=== PATIENT | male | born 1985 | race African-American/Black ===

== ENCOUNTER → 2020-11-27 09:45 | Outpatient (CLI) | payer OTHER, SELFPAY ==
[2020-11-27] MEDS: COVID-19 VACC, Ad26(JANSSEN)/PF 0.5 ML IM (09:53)
== END ==
PROVIDERS: Visit Provider Internal Medicine
DX: Z23 Encounter for immunization (principal)
CPT/HCPCS: 0031A; 91303

== ENCOUNTER → 2021-08-24 10:35 | Outpatient (CLI) | payer OTHER, SELFPAY ==
[2021-08-24 10:51] LABS: COVID19 -Nasal RAPID POSITIVE (Negative)
== END ==
PROVIDERS: Visit Provider Nurse Practitioner Family
DX: Z20.822 Contact with and (suspected) exposure to COVID-19 (principal)
CPT/HCPCS: 87635

== ENCOUNTER 2022-06-25 19:18 | Emergency (ER) | payer OTHER, SELFPAY ==
[2022-06-25 19:29] VITALS: BP 174/98; PULSE 77; RESP 16; TEMP 37.1; O2SAT 98; BMI 27.8
[2022-06-25] MEDS: FLUORESCEIN 1 MG STRIP EYE-LEFT (19:38)
[2022-06-25] MEDS: PROPARACAINE 0.5% OPHTH SOL 1 DROPS EYE-LEFT (19:38)
--- NOTE | 2022-06-25 20:01 | ED_ITS ---
HPI - Eye Problem General Chief complaint: Eye Problems Stated complaint: Painful left eye Time Seen by Provider: 06/25/22 19:33 Source: patient Mode of arrival: Ambulatory History of Present Illness HPI Narrative: 36-year-old male nonsmoker presents with burning pain and some redness in his left eye upon waking this afternoon. He denies any specific injury that states he feels like there maybe something in it. He denies any blurred vision or visual field cut. Denies any welding, use of UV lights, exposure to grinding metal. His tetanus up-to-date, he denies the use of corrective lenses. He is not recently been ill and denies any fever chills nor runny nose, sore throat or cough. He denies any traumatic injury Related Data Home Medications Medication Instructions Recorded Confirmed No Known Home Medications 08/24/21 08/24/21 Allergies Allergy/AdvReac Type Severity Reaction Status Date / Time No Known Drug Allergies Allergy Unverified 08/24/21 10:34 Review of Systems Review of Systems Narrative: GENERAL: Denies chills, fatigue, malaise, fever, sweats. HEENT: See HPI RESPIRATORY: Denies dyspnea, cough, wheezing, hemoptysis, sputum. CARDIOVASCULAR: Denies chest pain, palpitations, orthopnea, edema, GASTROINTESTINAL: Denies nausea, vomiting, abdominal pain, diarrhea, constipation, melena. : Denies dysuria, frequency, incontinence, hematuria, urinary retention. MUSCULOSKELETAL: denies weakness, joint pain, or bony pain SKIN: Denies rash, skin lesions, or other NEUROLOGIC: Denies weakness, headache, numbness, change in speech, confusion, seizures, incoordination. PSYCHIATRIC: No concerning psychosocial issues. 12 point review of systems is negative except for those stated above Patient History Social History (Reviewed 06/26/22 @ 01:[address] DO) Smoking Status: Never smoker Smoking Status: Never smoker Exam Narrative Exam Narrative: GENERAL: [36] year old patient appears stated age. Well-developed patient, in mild distress. HEAD: Atraumatic. Normocephalic. EYES: Pupils equal round and reactive. Extraocular motions intact. No scleral icterus. Minimal injection and left sclera, near complete resolution of symptoms with proparacaine. No dye uptake with fluorescein under UV lamp. No hyphema noted. Visual acuity noted on nursing chart in very minimal if any change. Ocular pressure with Bruce-Pen noted to be 17 mmHg. No foreign body noted, upper lid everted. ENT: Nose without bleeding, purulent drainage. Throat without erythema, tonsillar hypertrophy or exudate. Airway patent. NECK: Trachea midline. Non tender CARDIOVASCULAR: Regular rate and rhythm without murmurs, gallops, or rubs. RESPIRATORY: Clear to auscultation. Breath sounds equal bilaterally. No wheezes, rales, or rhonchi. GASTROINTESTINAL: Abdomen soft, non-tender, nondistended. EXTREMITIES: No edema or joint tenderness. BACK: Nontender without deformity or crepitance. No flank tenderness. NEURO: AOx3. SKIN: No rash or erythema of visible areas Initial Vital Signs Initial Vital Signs: Vital Signs Temperature 98.7 F 06/25/22 19:29 Pulse Rate 77 06/25/22 19:29 Respiratory Rate 16 06/25/22 19:29 Blood Pressure 174/98 H 06/25/22 19:29 Pulse Oximetry 98 06/25/22 19:29 Oxygen Delivery Method 06/25/22 19:29 Course Orders Ordered: Discontinued Medications Fluorescein Sodium (Fluorescein 1 Mg Strip) 1 mg EYE-LEFT NOW ONE Stop: 06/25/22 19:35 Last Admin: 06/25/22 19:38 Dose: 1 mg Documented By: JEANA Ofloxacin (Ofloxacin 0.3% Ophth 5 Ml) 1 drops EYE-LEFT NOW ONE Stop: 06/25/22 20:58 Last Admin: 06/25/22 21:01 Dose: 1 drop Documented By: JEANA Proparacaine HCl (Proparacaine 0.5% Ophth Mary Jane) 1 drops EYE-LEFT NOW ONE Stop: 06/25/22 19:35 Last Admin: 06/25/22 19:38 Dose: 1 drop Documented By: JEANA Vital Signs Vital signs: Vital Signs - 8 hr 06/25/22 19:29 06/25/22 21:05 Temperature 98.7 F Pulse Rate 77 60 Respiratory Rate 16 14 Blood Pressure 174/98 H 142/82 H Pulse Oximetry 98 99 Oxygen Delivery Method Room Air Room Air MDM - Eye Problem MDM Narrative Medical decision making narrative: Multiple etiologies for patient's symptoms considered including: [Corneal abrasion versus foreign body versus conjunctivitis versus acute angle closure glaucoma versus other] Patient's symptoms improved over duration of stay with above-stated therapies. Findings and discharge diagnosis discussed with patient/family followed by verbalization of understanding Return precautions discussed with patient/family whom verbalize understanding. Discharge Plan Departure Patient Disposition: Home Clinical Impression: Acute eye pain Instructions: DI for Eye Pain Activity Restrictions/Additional Instructions: *You have been diagnosed with [left eye pain and redness. As we discussed your history and physical exam are reassuring and there is no evidence of foreign body, glaucoma, retinal injury or other significant diagnosis that would require a specific or immediate intervention] *What to do: *Please use the Ofloxacin drops until you feel improvement. Please put 1-2 drops in your left eye every 2 hours while awake until better. Also, I sent a bottle of diluated Proparacaine (0.05%) which can help with your pain. You may use 1-2 drops every 45-60 minutes for pain *Please follow up with Dr. Morris at [facility]. Please call the office on Monday morning and let them know you were seen in the emergency department and we would like you seen in follow-up. I will electronically transmitted a copy of today's records *Return to Emergency Department if you should have any new, worsening or concerning symptoms Prescriptions: No Action No Known Home Medications Referrals: Nitin Morris MD [Physician] - Visit Report Forms: Patient Portal/API
[2022-06-25] MEDS: OFLOXACIN 0.3% OPHTH 5 ML 1 DROPS EYE-LEFT (21:01)
[2022-06-25 21:05] VITALS: BP 142/82; PULSE 60; RESP 14; O2SAT 99
== END 2022-06-25 21:11 | disposition home or self-care (01) ==
PROVIDERS: Emergency Provider Emergency Medicine
DX: H57.12 Ocular pain, left eye (principal)
CPT/HCPCS: 99282